=== PATIENT | female | born 1965 | race Caucasian/White ===

== ENCOUNTER 2017-08-25 13:46 | Emergency (ER) | payer OTHER ==
[2017-08-25 13:57] VITALS: BP 153/93
--- NOTE | 2017-08-25 14:46 | UC ---
Minor Trauma HPI - HPI Summary HPI Summary: While walking dog this morning, dog took off to lazarus cat and pulled pt over. She does not think her knee twisted, but she landed on her L hip and knee. has mild pain in L hip which is unconcerning to her, but developed immediate swelling on l leg below knee. Pt is concerned this will turn into a blood clot. Denies hx of clotting d/o. Since the injury swelling has improved. - History of Current Complaint Hx Obtained From: Patient Hx Last Menstrual Period: 06/16 ?: No Onset/Duration: Sudden Onset Onset Of Pain: Immediate Severity Initially: Mild Severity Currently: Moderate Mechanism Of Injury: Fall From A Standing Position Aggravating Factor(s): Movement, Weight Bearing Alleviating Factor(s): Rest <Karon Sanchez - Last Filed: 08/25/17 14:41> <Ingrid Crisostomo - Last Filed: 08/25/17 16:30> - History of Current Complaint Chief Complaint: UCLowerExtremity Stated Complaint: knee injury Time Seen by Provider: 08/25/17 14:20 - Allergies/Home Medications Allergies/Adverse Reactions: Allergies Allergy/AdvReac Type Severity Reaction Status Date / Time Cephalexin [From Keflex] Allergy Severe Hives Verified 08/25/17 13:57 Diphenhydramine Allergy Severe Anaphylatic Verified 08/25/17 13:57 [From Benadryl] Shock Hydrochlorothiazide Allergy Unknown Unknown Verified 08/25/17 13:57 Reaction Details Niacin [From Niaspan] Allergy Unknown Unknown Verified 08/25/17 13:57 Reaction Details Simvastatin Allergy Unknown Unknown Verified 08/25/17 13:57 Reaction Details Bupropion [From Wellbutrin] Allergy Hives Verified 08/25/17 13:57 Escitalopram [From Lexapro] Allergy Hives Verified 08/25/17 13:57 Gemfibrozil Allergy See Comment Verified 08/25/17 13:57 CRAB Allergy Severe Anaphylatic Uncoded 08/25/17 13:57 Shock LEMON Allergy Severe Hives Uncoded 08/25/17 13:57 PMH/Surg Hx/FS Hx/Imm Hx Cardiovascular History: Hypertension Respiratory History: COPD, Bronchitis GI/ History: Gastroesophageal Reflux - Surgical History Surgical History: Yes Surgery Procedure, Year, and Place: , TUBAL LIGATION, HERNIA SURGERY - Family History Known Family History: Negative: Blood Disorder - Social History Lives: With Family Alcohol Use: Daily Substance Use Type: None Smoking Status (MU): Heavy Every Day Tobacco Smoker <DanielKaron - Last Filed: 08/25/17 14:41> Review of Systems Constitutional: Negative Skin: Bruising Eyes: Negative ENT: Negative Respiratory: Negative Cardiovascular: Negative Gastrointestinal: Negative Genitourinary: Negative Motor: Negative Neurovascular: Negative Musculoskeletal: Negative Neurological: Negative Psychological: Negative Is Patient Immunocompromised?: No All Other Systems Reviewed And Are Negative: Yes <DanielKaron - Last Filed: 08/25/17 14:41> Physical Exam Triage Information Reviewed: Yes Appearance: Well-Appearing, No Pain Distress, Thin Vital Signs: Initial Vital Signs Temp 97.6 F 08/25/17 13:50 Pulse 97 08/25/17 13:50 Resp 20 08/25/17 13:50 BP 153/93 08/25/17 13:50 Pulse Ox 99 08/25/17 13:50 Vital Signs Reviewed: Yes Eye Exam: Normal Eyes: Positive: Conjunctiva Clear ENT Exam: Normal ENT: Positive: Normal ENT inspection, Hearing grossly normal, Pharynx normal, TMs normal Dental Exam: Other - multiple missing teeth Neck exam: Normal Neck: Positive: Supple, Nontender Respiratory Exam: Normal Respiratory: Positive: Chest non-tender, Lungs clear, Normal breath sounds, No respiratory distress, No accessory muscle use Cardiovascular Exam: Normal Cardiovascular: Positive: RRR, No Murmur Musculoskeletal Exam: Other - no L knee tenderness over patella or joint line Musculoskeletal: Positive: Strength Intact, ROM Intact, Other: - mild swelling and tenderness to L superolateral aspect of pretibilal region, consistent with contusion rather than hematoma Neurological Exam: Normal Neurological: Positive: Alert Psychological Exam: Normal Skin Exam: Other - bruising on L leg <Karon Sanchez - Last Filed: 08/25/17 14:41> Vital Signs: Initial Vital Signs Temp 97.6 F 08/25/17 13:50 Pulse 97 08/25/17 13:50 Resp 20 08/25/17 13:50 BP 153/93 08/25/17 13:50 Pulse Ox 99 08/25/17 13:50 <Ingrid Crisostomo - Last Filed: 08/25/17 16:30> Minor Trauma Course/Dx - Differential Dx/Diagnosis Provider Diagnoses: contusion to L lower leg <Karon Sanchez - Last Filed: 08/25/17 14:41> Discharge <Karon Sanchez - Last Filed: 08/25/17 14:41> <Ingrid Crisostomo - Last Filed: 08/25/17 16:30> - Discharge Plan Condition: Stable Disposition: HOME Patient Education Materials: Contusion in Adults (ED) Referrals: Leighton Melton MD [Primary Care Provider] - Additional Instructions: There is no sign of injury in your joint, and you do not appear to have any significant hematoma on your leg. I expect you to have bruising and soreness for several days (even 2 weeks or more), but after tomorrow you should see steady improvement. See your primary care provider or come back if you develop any instability in the left knee when you are walking. Attestation Statement User Type: Provider - I was available for consult. This patient was seen by the JESSICA. The patient was not presented to, seen by, or examined by me. -Joy <Ingrid Crisostomo - Last Filed: 08/25/17 16:30>
== END 2017-08-25 14:48 | disposition home or self-care (01) ==
LOC: UCEAST 13:46
DX: S80.12XA Contusion of left lower leg, initial encounter (principal); W01.0XXA Fall on same level from slipping, tripping and stumbling without subsequent striking against object, initial encounter; Y93.K1 Activity, walking an animal; Y92.9 Unspecified place or not applicable; Y99.9 Unspecified external cause status; Z72.0 Tobacco use
CPT/HCPCS: 99211; G0463

== ENCOUNTER 2018-03-05 18:14 | Emergency (ER) | payer MEDICAID, OTHER ==
[2018-03-05 19:01] VITALS: BP 159/97
--- NOTE | 2018-03-05 19:03 | UC ---
Skin Complaint HPI - HPI Summary HPI Summary: 52 yo female presents with insect bite to right side of abdomen 1 week ago. About a day or two after that she noticed the area became red and mildly swollen so she marked it with a pen. Site continued to increase in redness so she kept marking the area. Here today because it does not seem to be improving. Unsure what bit her. Denies fever, chills, SOB, chest pain, abdominal pain, n/v/ d. - History of Current Complaint Chief Complaint: UCSkin Time Seen by Provider: 03/05/18 19:03 Stated Complaint: INSECT BITE Hx Obtained From: Patient Hx Last Menstrual Period: 06/16 Onset/Duration: Sudden Onset Skin Exposure Onset/Duration: Days Ago Onset Severity: Mild Current Severity: Moderate Pain Intensity: 6 Pain Scale Used: 0-10 Numeric - Allergy/Home Medications Allergies/Adverse Reactions: Allergies Allergy/AdvReac Type Severity Reaction Status Date / Time bupropion [From Wellbutrin] Allergy Hives Verified 03/05/18 18:50 cephalexin [From Keflex] Allergy Hives Verified 03/05/18 18:50 diphenhydramine Allergy Anaphylatic Verified 03/05/18 18:50 [From Benadryl] Shock escitalopram [From Lexapro] Allergy Hives Verified 03/05/18 18:50 gemfibrozil Allergy See Comment Verified 03/05/18 18:50 hydrochlorothiazide Allergy Unknown Verified 03/05/18 18:50 Reaction Details niacin Allergy Unknown Verified 03/05/18 18:50 [From Niaspan Reaction Extended-Release] Details CRAB Allergy Severe Anaphylatic Uncoded 03/05/18 18:50 Shock LEMON Allergy Severe Hives Uncoded 03/05/18 18:50 Review of Systems Constitutional: Negative Skin: Other - Redness right abdomen Respiratory: Negative Cardiovascular: Negative Gastrointestinal: Negative Neurovascular: Negative Neurological: Negative Psychological: Negative All Other Systems Reviewed And Are Negative: Yes PMH/Surg Hx/FS Hx/Imm Hx Endocrine History: Dyslipidemia Cardiovascular History: Hypertension GI/ History: Gastroesophageal Reflux - Surgical History Surgical History: Yes Surgery Procedure, Year, and Place: , TUBAL LIGATION, HERNIA SURGERY - Family History Known Family History: Positive: Hypertension Negative: Blood Disorder - Social History Occupation: Employed Full-time Lives: With Family Alcohol Use: Daily Alcohol Amount: 2 beers/ day Substance Use Type: None Smoking Status (MU): Heavy Every Day Tobacco Smoker Length of Time of Smoking/Using Tobacco: 1.5 PPD Physical Exam - Summary Physical Exam Summary: GENERAL: NAD. WDWN. No pain distress. SKIN: Right mid abdomen: 10.0cm diameter of mild-moderate erythema with mild warmth and edema. No induration or fluctuance appreciated. No streaking, bleeding, or drainage. No obvious bite or puncture wounds. NECK: Supple. Nontender. No lymphadenopathy. CHEST: No accessory muscle use. Breathing comfortably and in no distress. CV: RRR. Without m/r/g. NEURO: Alert. CN II-XII grossly intact. PSYCH: Age appropriate behavior. Triage Information Reviewed: Yes Vital Signs: Initial Vital Signs Temp 98.3 F 03/05/18 18:51 Pulse 95 03/05/18 18:51 Resp 18 03/05/18 18:51 BP 159/97 03/05/18 18:51 Pulse Ox 97 03/05/18 18:51 Course/Dx - Course Course Of Treatment: Cellulitis right abdomen. Rx for Augmentin. Allergy to keflex noted - Pt states she has taken amoxicillin in the past without issue and is NOT allergic to PCN. - Diagnoses Provider Diagnoses: Cellulitis skin right abdomen Discharge - Sign-Out/Discharge Documenting (check all that apply): Discharge/Admit/Transfer - Discharge Plan Condition: Stable Disposition: HOME Prescriptions: Amoxicillin/Clavulanate TAB* [Augmentin TAB 875*] 875 mg PO BID #14 tab Patient Education Materials: Cellulitis (DC) Referrals: Leighton Melton MD [Primary Care Provider] - Additional Instructions: If you develop a fever, shortness of breath, chest pain, new or worsening symptoms - please call your PCP or go to the ED. Your blood pressure was high at todays visit. Please see your primary provider within 4 weeks for recheck and re-evaluation. 1) Please keep your appointment with your PCP in 4 days for recheck - Billing Disposition and Condition Condition: STABLE Disposition: HOME
== END 2018-03-05 19:35 | disposition home or self-care (01) ==
LOC: UCEAST 18:14
DX: L03.311 Cellulitis of abdominal wall (principal); E78.5 Hyperlipidemia, unspecified; I10 Essential (primary) hypertension; K21.9 Gastro-esophageal reflux disease without esophagitis; F17.210 Nicotine dependence, cigarettes, uncomplicated; Z91.013 Allergy to seafood; Z88.3 Allergy status to other anti-infective agents; Z91.018 Allergy to other foods; Z82.49 Family history of ischemic heart disease and other diseases of the circulatory system
CPT/HCPCS: 99201; G0463

== ENCOUNTER 2019-02-12 12:41 | Emergency (ER) | payer OTHER ==
[2019-02-12 13:13] VITALS: BP 157/88
--- NOTE | 2019-02-12 13:36 | UC ---
Skin Complaint HPI - HPI Summary HPI Summary: PATIENT SUSTAINED AN INSECT BITE TO HER RIGHT AC FOSSA 1.5 - 2 WEEKS AGO WHILE IN [place]. STATES THAT SINCE THEN THE AREA HAS BECOME INCREASINGLY RED, SWOLLEN, PAINFUL AND ITCHY. NO FEVER, NAUSEA/VOMITING. - History of Current Complaint Chief Complaint: UCSkin Time Seen by Provider: 02/12/19 13:19 Stated Complaint: INSECT BITE Hx Obtained From: Patient Hx Last Menstrual Period: 06/16 Onset/Duration: Gradual Onset, Lasting Weeks, Still Present Timing: Constant Onset Severity: Moderate Current Severity: Moderate Pain Intensity: 0 Pain Scale Used: 0-10 Numeric Location: Discrete - RIGHT ARM Character: Pruritus, Redness, Raised, Painful Aggravating Factor(s): Touch Alleviating Factor(s): Nothing Associated Signs & Symptoms: Positive: Rash, Tenderness, Red Streaks. Negative : Nausea, Fever, Drainage Related History: Insect Bite/Sting - Allergy/Home Medications Allergies/Adverse Reactions: Allergies Allergy/AdvReac Type Severity Reaction Status Date / Time bupropion [From Wellbutrin] Allergy Hives Verified 02/12/19 13:14 cephalexin [From Keflex] Allergy Hives Verified 02/12/19 13:14 diphenhydramine Allergy Anaphylatic Verified 02/12/19 13:14 [From Benadryl] Shock escitalopram [From Lexapro] Allergy Hives Verified 02/12/19 13:14 gemfibrozil Allergy See Comment Verified 02/12/19 13:14 hydrochlorothiazide Allergy Unknown Verified 02/12/19 13:14 Reaction Details niacin Allergy Unknown Verified 02/12/19 13:14 [From Niaspan Reaction Extended-Release] Details CRAB Allergy Severe Anaphylatic Uncoded 02/12/19 13:14 Shock LEMON Allergy Severe Hives Uncoded 02/12/19 13:14 Home Medications: Home Medications Icosapent Ethyl [Vascepa] 1 tab PO DAILY 02/12/19 [History Confirmed 02/12/19] PMH/Surg Hx/FS Hx/Imm Hx - Additional Past Medical History Additional PMH: FIBROMYALGIA Cardiovascular History: Hypertension - Surgical History Surgical History: Yes Surgery Procedure, Year, and Place: , TUBAL LIGATION, HERNIA SURGERY - Family History Known Family History: Positive: Hypertension Negative: Blood Disorder - Social History Alcohol Use: Daily Alcohol Amount: 2 beers/ day Substance Use Type: None Smoking Status (MU): Heavy Every Day Tobacco Smoker Length of Time of Smoking/Using Tobacco: 1.5 PPD Review of Systems All Other Systems Reviewed And Are Negative: Yes Constitutional: Positive: Negative Skin: Positive: Rash Respiratory: Positive: Negative Cardiovascular: Positive: Negative Gastrointestinal: Positive: Negative Physical Exam Triage Information Reviewed: Yes Appearance: Well-Appearing, No Pain Distress, Well-Nourished Vital Signs: Initial Vital Signs Temp 98 F 02/12/19 13:11 Pulse 96 02/12/19 13:11 Resp 17 02/12/19 13:11 BP 157/88 02/12/19 13:11 Pulse Ox 100 02/12/19 13:11 Vital Signs Reviewed: Yes Eyes: Positive: Conjunctiva Clear ENT: Positive: Hearing grossly normal Neck: Positive: Supple Respiratory: Positive: No respiratory distress, No accessory muscle use Cardiovascular: Positive: Pulses Normal Abdomen Description: Positive: Soft Musculoskeletal: Positive: No Edema Neurological: Positive: Alert Psychological: Positive: Age Appropriate Behavior Skin: Positive: Other - 4CM X 1CM AREA OF ERYTHEMA AND INDURATION WITH SURROUNDING ERYTHEMA EXTENDING PROXIMALLY TO MID UPPER ARM AND DISTALLY TO MID FOREARM. Course/Dx - Diagnoses Provider Diagnosis: Cellulitis of right upper extremity Discharge - Sign-Out/Discharge Documenting (check all that apply): Patient Departure All imaging exams completed and their final reports reviewed: No Studies - Discharge Plan Condition: Stable Disposition: HOME Prescriptions: Sulfamethox/Trimethoprim DS* [Bactrim DS 800/160 TAB*] 1 tab PO BID #20 tab Triamcinolone 0.1% CREAM(NF) [Kenalog Cream 0.1%(NF)] 1 applic TOPICAL TID PRN # 1 tube PRN Reason: Itching Patient Education Materials: Cellulitis (ED) Referrals: No Primary Care Phys,NOPCP [Primary Care Provider] - Additional Instructions: TAKE THE ANTIBIOTIC FOR THE FULL COURSE TO COVER FOR INFECTION. I WOULD ALSO RECOMMEND YOU TAKE AN OTC ANTIHISTAMINE TO COVER FOR ANY ALLERGIC COMPONENT. TOPICAL STEROID 2-3 TIMES DAILY WILL HELP WITH THE ITCHING AND INFLAMMATION. SEEK FOLLOW UP IF YOU'RE NOT IMPROVING WITH THIS TREATMENT OVER THE NEXT 2-3 DAYS. CALL THE NUMBER BELOW FOR ASSISTANCE IN ESTABLISHING WITH A PCP An additional resource available to assist in finding the appropriate physician for your health care needs is the [facility] ([facility]). You may contact them by calling [phone]. - Billing Disposition and Condition Condition: STABLE Disposition: Home
== END 2019-02-12 13:40 | disposition home or self-care (01) ==
LOC: UCEAST 12:41
DX: L03.113 Cellulitis of right upper limb (principal); M79.7 Fibromyalgia; I10 Essential (primary) hypertension; F17.210 Nicotine dependence, cigarettes, uncomplicated; Z88.1 Allergy status to other antibiotic agents; Z91.013 Allergy to seafood; Z88.8 Allergy status to other drugs, medicaments and biological substances; Z91.018 Allergy to other foods; Z79.899 Other long term (current) drug therapy; Z82.49 Family history of ischemic heart disease and other diseases of the circulatory system
CPT/HCPCS: 99212; G0463

== ENCOUNTER 2019-02-16 11:49 | Emergency (ER) | payer OTHER ==
[2019-02-16 12:09] VITALS: BP 138/99
--- NOTE | 2019-02-16 12:25 | UC ---
General HPI - HPI Summary HPI Summary: Was seen in urgent care on 02/12 - Diagnosed with cellulitis and started on Bactrim - states she has taken 8 doses and the redness has continued to extend. Of note presented about 1.5 weeks prior to initial visit on 02/12 - thought it was a spider bite. No fevers. No N/V. Otherwise well. Area more itchy than painful. FROM of right arm. Meds; REviewed - History of Current Complaint Chief Complaint: UCSkin Stated Complaint: SKIN ISSUE Time Seen by Provider: 02/16/19 12:13 Hx Last Menstrual Period: 06/16 Pain Intensity: 0 - Allergy/Home Medications Allergies/Adverse Reactions: Allergies Allergy/AdvReac Type Severity Reaction Status Date / Time bupropion [From Wellbutrin] Allergy Hives Verified 02/16/19 12:09 cephalexin [From Keflex] Allergy Hives Verified 02/16/19 12:09 diphenhydramine Allergy Anaphylatic Verified 02/16/19 12:09 [From Benadryl] Shock escitalopram [From Lexapro] Allergy Hives Verified 02/16/19 12:09 gemfibrozil Allergy See Comment Verified 02/16/19 12:09 hydrochlorothiazide Allergy Unknown Verified 02/16/19 12:09 Reaction Details niacin Allergy Unknown Verified 02/16/19 12:09 [From Niaspan Reaction Extended-Release] Details CRAB Allergy Severe Anaphylatic Uncoded 02/16/19 12:09 Shock LEMON Allergy Severe Hives Uncoded 02/16/19 12:09 PMH/Surg Hx/FS Hx/Imm Hx Previously Healthy: Yes Cardiovascular History: Hypertension - Surgical History Surgical History: Yes Surgery Procedure, Year, and Place: , TUBAL LIGATION, HERNIA SURGERY - Family History Known Family History: Positive: Hypertension Negative: Blood Disorder - Social History Alcohol Use: Daily Alcohol Amount: 2 beers/ day Substance Use Type: None Smoking Status (MU): Heavy Every Day Tobacco Smoker Length of Time of Smoking/Using Tobacco: 1.5 PPD Review of Systems All Other Systems Reviewed And Are Negative: Yes Physical Exam Triage Information Reviewed: Yes Appearance: Well-Appearing Vital Signs: Initial Vital Signs Temp 98.2 F 02/16/19 12:05 Pulse 71 02/16/19 12:05 Resp 18 02/16/19 12:05 BP 138/99 02/16/19 12:05 Pulse Ox 99 02/16/19 12:05 Skin Exam: Other - erythema, warmth, pain in confluent circular region in right antecubital fossa about 6 cm. No fluctuance or induration Course/Dx - Course Course Of Treatment: This is a 53 yr old with persistent right arm redness, pain and itching despite taking bactrim May not be covering strep Plan Stop Bactrim Start Cindamycin as prescribed If symptoms do not improve by 48 hours return to urgent care or your primary care physician - Diagnoses Provider Diagnosis: Cellulitis Discharge - Sign-Out/Discharge Documenting (check all that apply): Patient Departure All imaging exams completed and their final reports reviewed: No Studies - Discharge Plan Condition: Good Disposition: HOME Prescriptions: Clindamycin Cap(NF) [Clindamycin Cap 300 mg Cap(NF)] 300 mg PO Q6H #28 cap Patient Education Materials: Cellulitis (ED) Referrals: No Primary Care Phys,NOPCP [Primary Care Provider] - Additional Instructions: Stop Bactrim Start Cindamycin as prescribed If symptoms do not improve by 48 hours return to urgent care or your primary care physician - Billing Disposition and Condition Condition: GOOD Disposition: Home
== END 2019-02-16 12:36 | disposition home or self-care (01) ==
LOC: UCEAST 11:49
DX: L03.113 Cellulitis of right upper limb (principal); I10 Essential (primary) hypertension; F17.210 Nicotine dependence, cigarettes, uncomplicated; Z88.1 Allergy status to other antibiotic agents; Z91.09 Other allergy status, other than to drugs and biological substances; Z88.8 Allergy status to other drugs, medicaments and biological substances; Z91.018 Allergy to other foods
CPT/HCPCS: 99212; G0463